=== PATIENT | female | born 1960 | race Caucasian/White ===

== ENCOUNTER 2018-04-09 06:21 | Observation (INO) | payer OTHER ==
[2018-04-09] MEDS ORDERED: CLINDAMYCIN 900 MG/DEXTROSE 50 ML IV ONE (06:38)
[2018-04-09] MEDS ORDERED: LR 1,000 ML IV ONE (06:40)
[2018-04-09] MEDS ORDERED: LIDOCAINE 1% 2 ML INJ ID PRN (06:40)
[2018-04-09] MEDS ORDERED: ceFAZolin 1 GM/5 ML SYR ONE (07:07)
[2018-04-09] MEDS ORDERED: BUPIVACAINE 0.25% 30 ML SDV ONE (07:07)
[2018-04-09] MEDS ORDERED: HEPARIN 1000 UNIT/1 ML MDV ONE (07:07)
--- NOTE | 2018-04-09 07:20 | CPEKG ---
Heart Rate: 57 RR Interval: 1053 P-R Interval: 176 QRSD Interval: 92 QT Interval: 432 QTC Interval: 421 P Nikolai: 16 QRS Nikolai: 36 T Wave Nikolai: 2 EKG Severity - NORMAL ECG - EKG Impression: SINUS RHYTHM Electronically Signed By: Talia Atkins 09-Apr-2018 08:07:49
--- NOTE | 2018-04-09 07:37 | PDHPUP ---
History & Physical Update H&P update statement: This history and physical update is based on an assessment of the patient which was completed after admission or registration (within 24 hours), but prior to the surgery/procedure. H&P update: H&P reviewed & patient examined, no change in patient's condition since H&P completed
[2018-04-09] MEDS ORDERED: MIDAZOLAM 2 MG/2 ML VIAL ONE (07:54)
[2018-04-09] MEDS ORDERED: MIDAZOLAM 2 MG/2 ML VIAL IVP ONE ×2 (07:54→09:05)
--- NOTE | 2018-04-09 07:54 | PDANEPAE ---
ANE History of Present Illness Yared fundoplication ANE Past Medical History - Cardiovascular History Hx Hypertension: No Hx Arrhythmias: No Hx Chest Pain: No Hx Coronary Artery / Peripheral Vascular Disease: No Hx CHF / Valvular Disease: No Hx Palpitations: No Cardiovascular History Comment: bp was slightly elevated at last visit with pcp. will obtain EKG from [facility] in [place]. BLE edema. Pt. reports having cardiac evaluation in 17 after PE. Heart function was apparently normal - Pulmonary History Hx COPD: No Hx Asthma/Reactive Airway Disease: No Hx Oxygen in Use at Home: No Hx Sleep Apnea: No Sleep Apnea Screening Result - Last Documented: Negative Pulmonary History Comment: hx of PE x2 post op last being 04/2017- eliquis to be stopped by pcp - Neurologic History Hx Cerebrovascular Accident: No Hx Seizures: No Hx Dementia: No - Endocrine History Hx Diabetes: No Obesity: severe - Renal History Hx Renal Disorders: No - Liver History Hx Hepatic Disorders: No - Neurological & Psychiatric Hx Hx Neurological and Psychiatric Disorders: No - Cancer History Hx Cancer: No - Congenital Disorder History Hx Congenital Disorders: No - GI History GERD: severe Hx Gastrointestinal Disorders: Yes Gastrointestinal History Comment: reflux d/t hiatal hernia - Other Health History Other Health History: wears glasses. currently having itching to bilateral legs mostly below knees- being worked up by pcp - Chronic Pain History Chronic Pain: No - Surgical History Prior Surgeries: left ankle tendon repair 04/2017 - second PE post op. right radial head repair 12/2016. hysterectomy 2014- first PE post op. ramo 2005 ANE Review of Systems Review of Systems: - Exercise capacity METS (RN): 3 METS ANE Patient History - Allergies Allergies/Adverse Reactions: Penicillins Allergy (Verified 04/03/18 12:28) swelling pretty much all over - Home Medications Home Medications: Apixaban [Eliquis] 2.5 mg PO BID 04/02/18 [Last Taken 04/07/18] Cholecalciferol Vit D3 [Vitamin D3 (*)] 1,000 units PO TID 04/02/18 [Last Taken 04/02/18] Furosemide [Lasix 20 MG (*)] 20 mg PO DAILY 04/02/18 [Last Taken 04/03/18] Montelukast Sodium [Singulair 10 mg (*)] 10 mg PO HS 04/02/18 [Last Taken 2 Weeks Ago ~03/26/18] Omeprazole 40 mg PO DAILY 04/02/18 [Last Taken 04/08/18] Potassium Cl [Klor-Con] 10 meq PO DAILY 04/02/18 [Last Taken 04/03/18] Ranitidine HCl [Zantac] 300 mg PO HS 04/02/18 [Last Taken 04/08/18] hydrOXYzine HCL [hydrOXYzine HCL (RX)] 75 mg PO HS 04/02/18 [Last Taken 04/08/18 ] - NPO status NPO Since - Liquids (Date): 04/08/18 NPO Since - Liquids (Time): 21:30 NPO Since - Solids (Date): 04/08/18 NPO Since - Solids (Time): 21:00 - Anes Hx Anes Hx: slow to awaken from anesthesia - Smoking Hx Smoking Status: Never smoked - Family Anes Hx Family Hx Anesthesia Complications: none ANE Labs/Vital Signs - Labs Result Diagrams: 04/09/18 07:24 - Vital Signs Blood Pressure: 159/89 Heart Rate: 61 Respiratory Rate: 16 O2 Sat (%): 97 Height: 165.1 cm Weight: 117.48 kg ANE Physical Exam - Airway Neck exam: FROM Mallampati Score: Class 2 Mouth exam: normal dental/mouth exam (upper and lower implants) - Pulmonary Pulmonary: clear to auscultation - Cardiovascular Cardiovascular: regular rate and rhythym - ASA Status ASA Status: III ANE Anesthesia Plan Anesthesia Plan: general endotracheal anesthesia
[2018-04-09] MEDS ORDERED: fentaNYL 250 MCG/5 ML INJ ONE (08:03)
[2018-04-09] MEDS ORDERED: ROCURONIUM 50 MG/5 ML VIAL ONE ×2 (08:03→09:29)
[2018-04-09] MEDS ORDERED: DEXAMETHASONE 4 MG/ML VIAL ONE (08:03)
[2018-04-09] MEDS ORDERED: PROPOFOL 200 MG/20 ML VIAL ONE ×3 (08:03→09:06)
[2018-04-09] MEDS ORDERED: RANITIDINE 50 MG/2 ML VIAL ONE (08:03)
[2018-04-09] MEDS ORDERED: PHENYLEPHRINE HCL 100 MCG/ML SYR ONE (08:52)
[2018-04-09] MEDS ORDERED: ePHEDrine SULFATE 25 MG/5 ML SYR ONE (08:52)
[2018-04-09] MEDS ORDERED: ONDANSETRON 4 MG/2 ML VIAL ONE ×2 (09:47→11:31)
[2018-04-09] MEDS ORDERED: SUGAMMADEX SODIUM 200 MG/2 ML VIAL IVP ONE ×2 (10:06)
[2018-04-09] MEDS ORDERED: ONDANSETRON 4 MG/2 ML VIAL IVP PRN ×2 (10:26→11:06)
[2018-04-09] MEDS ORDERED: NALOXONE HCL 0.4 MG/ML INJ IVP PRN (10:26)
[2018-04-09] MEDS ORDERED: fentaNYL 100 MCG/2 ML INJ ONE ×2 (10:28→11:00)
[2018-04-09] MEDS: fentaNYL 100 MCG/2 ML INJ IVP PRN ×3 (10:32→11:26)
[2018-04-09] MEDS ORDERED: HYDROmorphONE/DILAUDID 1 MG/ML INJ ONE ×2 (10:34→11:00)
[2018-04-09] MEDS: HYDROmorphONE/DILAUDID 1 MG/ML INJ IVP PRN ×4 (10:37→11:26)
[2018-04-09] MEDS ORDERED: HYDROmorphONE/DILAUDID 1 MG/ML INJ IVP PRN (11:06)
[2018-04-09] MEDS ORDERED: NS 1,000 ML IV SCH (11:15)
--- NOTE | 2018-04-09 12:32 | POSTANESTH ---
Post Anesthetic Evaluation Cardiovascular Status: Similar to Pre-Op Cond Respiratory Status: Similar to Pre-op Cond. Level of Consciousness/Mental Status: Can Participate in Eval Pain Control: Adequate, Prn Tx Ordered Nausea/Vomiting Control: Adequate, Prn Tx Ordered Complications Possibly Related to Anesthesia: None Noted
[2018-04-09] MEDS: HYDROCODONE/APAP 5/325 TAB PO PRN (20:09)
[2018-04-09] MEDS: DOCUSATE SODIUM 100 MG CAP PO SCH (20:10)
[2018-04-09] MEDS ORDERED: hydrOXYzine HCL 50 MG TAB PO SCH (21:00)
[2018-04-09] MEDS ORDERED: MONTELUKAST SODIUM 10 MG TAB PO SCH (21:00)
[2018-04-09] MEDS ORDERED: NON-FORMULARY NEW DRUG (Ranitidine Hcl [Zantac] 300 MG) PO SCH (21:00)
[2018-04-10] MEDS: HYDROCODONE/APAP 5/325 TAB PO PRN (04:21)
[2018-04-10] MEDS: DOCUSATE SODIUM 100 MG CAP PO SCH (08:26)
[2018-04-10 08:57] VITALS: BP 125/74
[2018-04-10] MEDS ORDERED: FUROSEMIDE 20 MG TAB PO SCH (09:00)
[2018-04-10] MEDS ORDERED: ENOXAPARIN 40 MG/0.4 ML SYR SC SCH (09:00)
[2018-04-10] MEDS ORDERED: PANTOPRAZOLE SODIUM 40 MG VIAL IVP SCH (09:00)
[2018-04-10] MEDS ORDERED: NON-FORMULARY NEW DRUG (Omeprazole [Omeprazole] 40 MG) PO SCH (09:00)
--- NOTE | 2018-04-10 09:25 | SOAPPROG ---
SOAP Progress Note Assessment/Plan: Assessment: 58 y/o F s/p lap rossana fundoplication with entrance into the pleura POD #1 S: Doing well overall. Denies SOB, nausea and vomiting. Pain well controlled. Tolerating clear liquids. Passed some gas last night, but no BM. O: Alert Afebrile RRR Chest: CTA bilaterally, no increased WOB Abdomen: soft, nontender, nondistended, normoactive bowel sounds. Plan: Chest xray is improved today. Advance diet to dysphagia 3. Dispo home later today. Ok to restart Eliquis tonight. 04/10/18 09:22 Objective: Vital Signs Temp Pulse Resp BP Pulse Ox 36.6 C 67 18 125/74 H 91 L 04/10/18 08:00 04/10/18 08:00 04/10/18 08:00 04/10/18 08:00 04/10/18 08:00 Laboratory Results 04/10/18 05:15 04/10/18 05:15 04/09/18 04/10/18 04/11/18 05:59 05:59 05:59 Intake Total 2275 500 Output Total 975 500 Balance 1300 0 ICD10 Worksheet Patient Problems: Problems Problem Status Onset Hiatal hernia Acute - ICD10 Problem Qualifiers (1) Hiatal hernia
--- NOTE | 2018-04-10 09:29 | POSTOPPROG ---
Post Op Note Date of Operation: 04/09/18 Surgeon: Juno Fitch Unit Aide Tech: Bita Andrew Anesthesia: GET(General Endotracheal) Pre-op Diagnosis: hiatal hernia, pain, GERD Post-op Diagnosis: same Procedure: lap hiatal hernia repair c Yared fundoplication Findings: thick hernia sac, 1/2 stomach in chest, pleural cavity entered on left Inf/Abcess present in the surg proc area at time of surgery?: No EBL: Minimal Complications: none Specimen(s): none
--- NOTE | 2018-04-13 20:26 | GOP ---
[f rep st] OPERATIVE REPORT DATE OF OPERATION: 04/09/2018 SURGEON: Juno Fitch MD ORACLE CONSULTANT: TATE Ryan. PREOPERATIVE DIAGNOSIS: Giant hiatal hernia and gastroesophageal reflux. POSTOPERATIVE DIAGNOSIS: Giant hiatal hernia and gastroesophageal reflux. PROCEDURE PERFORMED: Laparoscopic hiatal hernia repair with Yared wrap. FINDINGS: Patient was found to have at least half of her stomach up in the chest, but it did come do wn reasonably easily. The hiatus was able to be closed directly. DESCRIPTION OF PROCEDURE: The patient was taken to the operating room where she received satisfactor y general endotracheal anesthesia. She was placed in supine position in split leg position. She was prepped and draped in the usual sterile fashion. An epigastric incision was made. A Veress needle was inserted. Pneumoperitoneum was established. The trocar was introduced. Laparoscope introduced. Good visualization was obtained. Four other trocars were placed in the upper abdomen under direct vision. The left lateral segment of the liver was elevated up with a liver retractor. The stomach w as then reduced out of the chest with minimal difficulty. The hiatal hernia sac was quite thicken an d the stomach was attached to the left pleura. This was all freed up with the Harmonic Scalpel, expo sing both right and left diaphragmatic rafaela and dissecting the esophagus free for at least 6 cm above the diaphragm. Excess hernia sac and fatty tissue around the hiatus was dissected free with the Jus tina Scalpel and removed. The greater curvature of the stomach was mobilized, and the short gastric s were divided with the Harmonic Scalpel. After adequate exposure the crura were approximated with i nterrupted 0 Ethibond sutures. This was done over a 52 bougie dilator snugging up the hiatus opening . The fundus of the stomach was then passed in a retroesophageal tunnel and a Yared wrap was then c reated over the distal esophagus with interrupted 0 Ethibond sutures securing the anterior wall of th e stomach to the anterior wall of the esophagus and then to the fundoplication wrap. This created a loose, floppy fundoplication wrap. Hemostasis was assured. Trocars were removed under direct vision . Trocar sites were closed with 4-0 Monocryl subcuticular stitch for the skin. All layers were infi ltrated with 0.5% Marcaine. Blood loss was negligible. No complications. Taken to recovery room in good condition. /[id number]/MODL
--- NOTE | 2018-05-02 13:23 | GDS ---
[f rep st] DISCHARGE SUMMARY DISCHARGE DIAGNOSES: 1. Hiatal hernia. 2. Anemia. 3. Upper gastrointestinal bleeding. 4. Postoperative anemia due to acute blood loss. CONSULTATIONS: None. SPECIAL TESTS: Chest x-rays x3. For complete details, please see report. PROCEDURES: Laparoscopic hiatal hernia repair with Yared wrap. Intraoperative findings from this procedure: The patient was found to have at least half of her stomach up in the chest, though it did come down reasonably easily. The hiatus was able to be closed directly. HOSPITAL COURSE: This is a 58-year-old female with a history of hiatal hernia, who was admitted to the hospital to undergo planned laparoscopic hiatal hernia and Yared fundoplication surgery. Her surgery went well; although, the pleural space was entered on the left side. This was monitored via serial chest x-rays. By the following day, the pneumothorax had completely resolved. She did have trace left pleural effusion at that time. She had no shortness of breath. Other than this, her postoperative course was rather uneventful. The following day, she was tolerating clears and passing gas. She did not have any nausea or vomiting, and her pain was well controlled on oral pain medications. She was then advanced to a soft diet and discharged home later in the day, on , in good condition. She was told to restart her Eliquis later that night. She was asked to follow up in our office in 1 week and to call with any questions or concerns or with fever, chills or increased pain. /[id number]/MODL MTDD
== END 2018-04-10 12:25 | disposition home or self-care (01) ==
LOC: F3N 06:21 → F3E 11:58
PROVIDERS: ADMIT Surgery; ATTEND Surgery
PROC: 0DV44ZZ Restriction of Esophagogastric Junction, Percutaneous Endoscopic Approach (ICD-10-PCS; principal; 2018-04-09 08:00)
DX: K44.9 Diaphragmatic hernia without obstruction or gangrene (principal); K21.9 Gastro-esophageal reflux disease without esophagitis
CPT/HCPCS: 43282; 71045; 71046; 93005; G0378; J1100; J1170; J1650; J2250; J2370; J2405; J2704; J2780; J3010

== ENCOUNTER 2018-07-01 11:14 | Day surgery (SDC) | payer OTHER ==
[2018-07-01] MEDS ORDERED: fentaNYL 100 MCG/2 ML INJ IVP PRN (11:24)
[2018-07-01] MEDS ORDERED: NALOXONE HCL 0.4 MG/ML INJ IVP PRN (11:24)
[2018-07-01] MEDS ORDERED: MIDAZOLAM 2 MG/2 ML VIAL IVP PRN (11:24)
[2018-07-01] MEDS ORDERED: MEPERIDINE 25 MG/ML SYR IVP PRN (11:24)
[2018-07-01] MEDS ORDERED: FLUMAZENIL 0.5 MG/5 ML MDV IVP PRN (11:24)
[2018-07-01] MEDS ORDERED: ONDANSETRON 4 MG/2 ML VIAL IVP ONE (11:24)
[2018-07-01] MEDS ORDERED: NS 1,000 ML IV SCH (11:30)
[2018-07-01] MEDS ORDERED: NALOXONE HCL 0.4 MG/ML INJ ONE (12:32)
[2018-07-01] MEDS ORDERED: fentaNYL 100 MCG/2 ML INJ ONE (12:33)
[2018-07-01] MEDS ORDERED: MIDAZOLAM 2 MG/2 ML VIAL ONE (12:33)
[2018-07-01] MEDS ORDERED: FLUMAZENIL 0.5 MG/5 ML MDV IVP ONE (12:33)
--- NOTE | 2018-07-01 13:03 | PDPROPOC ---
Sedation Plan of Care Sedation Plan of Care: vital signs stable, mental status noted, patient educated of risks, benefits, alternatives, patient can tolerate sedation ASA Classification: ASA 2 Planned drugs: fentanyl, midazolam Mallampati Score: Class 2 Mallampati Reference Image: Patient passed 3-3-2 rule?: Yes
--- NOTE | 2018-07-01 13:04 | PDRADPRE ---
Radiology History & Physical Indication for procedure: other (DVT/PE, GI bleed resolved, resumed anticoagulation. Caval filtration no longer indicated, plan for IVC filter retreival) Home medications: Montelukast Sodium [Singulair 10 mg (*)] 10 mg PO DAILY@1800 04/20/18 [Last Taken 06/30/18] hydrOXYzine HCL [hydrOXYzine HCL (RX)] 75 mg PO HS 04/20/18 [Last Taken 06/30/18 ] Furosemide 10 mg PO DAILY 06/24/18 [Last Taken 06/30/18] Allergies/Adverse Reactions: Penicillins Allergy (Verified 04/27/18 11:16) swelling pretty much all over Mental status: A&Ox3 Heart exam: regular rate and rhythm Lungs exam: clear to auscultation Mallampati Score: Class 2
[2018-07-01] MEDS ORDERED: ONDANSETRON 4 MG/2 ML VIAL IVP PRN (13:35)
[2018-07-01] MEDS ORDERED: OXYCODONE/APAP 5/325 TAB PO PRN (13:35)
--- NOTE | 2018-07-01 13:35 | PDRADPN ---
Radiology Procedure Note Date of Procedure: 07/01/18 Radiologist: Bandar De Oliveira Anesthesia: IV Sedation Pre-op Diagnosis: DVT/PE Post-op Diagnosis: DVT/PE Indication: Caval filtration no longer indicated Procedure: IVC filter retreival Finding(s): Successful Cook Celect filter retreival intact. Inf/Abcess present in the surg proc area at time of surgery?: No
[2018-07-01] MEDS ORDERED: IOPAMIDOL (ISOVUE-300) 100 ML BTL ONE ×2 (13:43→16:39)
[2018-07-01 14:30] VITALS: BP 146/77
[2018-07-01] MEDS ORDERED: LIDOCAINE 1% 300 MG/30 ML SDV ONE (16:40)
== END 2018-07-01 14:31 | disposition home or self-care (01) ==
LOC: FIMAGING 11:14
PROVIDERS: ATTEND Internal Medicine Hematology & Oncology
DX: Z45.89 Encounter for adjustment and management of other implanted devices (principal); Z86.711 Personal history of pulmonary embolism; Z86.718 Personal history of other venous thrombosis and embolism
CPT/HCPCS: 37193; 75825; 76937; 99152; C1769; C1773; C1894; J1644; J2250; J2310; J3010; Q9967